=== PATIENT | female | born 1955 | race Hispanic/Latino ===

== ENCOUNTER 2021-02-08 05:52 | Day surgery (SDC) | payer OTHER, MEDICARE ==
[~2021-02-08] VITALS: Ht 149.9 cm; Wt 81.6 kg
[2021-02-08] MEDS ORDERED: 0.9%NACL 1000ML 1,000 ML IV ONE (06:24)
[2021-02-08 06:45] VITALS: BP 147/56
[2021-02-08] MEDS ORDERED: OLME40TA18 PO (07:08)
[2021-02-08] MEDS ORDERED: DULA1.5P SQ (07:08)
[2021-02-08] MEDS ORDERED: CANA300T PO (07:08)
[2021-02-08] MEDS ORDERED: FAMO20TA8 PO (07:08)
[2021-02-08] MEDS ORDERED: SUCR1TAB2 PO (07:08)
[2021-02-08] MEDS ORDERED: METF-527 PO (07:08)
[2021-02-08] MEDS ORDERED: ROSU10TA28 PO (07:08)
[2021-02-08] MEDS ORDERED: MONT-39 PO (07:08)
[2021-02-08] MEDS ORDERED: PARO40TA72 PO (07:08)
[2021-02-08] MEDS ORDERED: OMEP40CA21 PO (07:08)
[2021-02-08] MEDS ORDERED: DICY20TA3 PO (07:08)
[2021-02-08] MEDS ORDERED: ALLO100T PO (07:08)
[2021-02-08] MEDS ORDERED: PROPOFOL 10 MG/ML 20ML VIAL IV ONE (08:19)
[2021-02-08] MEDS ORDERED: EPINEPHRINE PF 1MG AMP ONE (08:39)
[2021-02-08 08:50] VITALS: BP 144/70
[2021-02-08 08:56] VITALS: BP 146/62
[2021-02-08 09:00] VITALS: BP 163/70
[2021-02-08 09:05] VITALS: BP 145/62
[2021-02-08 09:20] VITALS: BP 148/70
== END 2021-02-08 09:20 | disposition home or self-care (01) ==
LOC: ENDO 05:52 → DAH 05:52 → ENDO 09:20
PROVIDERS: ATTEND Internal Medicine Gastroenterology
DX: K31.7 Polyp of stomach and duodenum (principal); Z20.822 Contact with and (suspected) exposure to COVID-19; K29.50 Unspecified chronic gastritis without bleeding; K31.89 Other diseases of stomach and duodenum; K21.9 Gastro-esophageal reflux disease without esophagitis; E11.9 Type 2 diabetes mellitus without complications; E66.01 Morbid (severe) obesity due to excess calories; I10 Essential (primary) hypertension; F41.9 Anxiety disorder, unspecified; F32.9 Major depressive disorder, single episode, unspecified; E78.00 Pure hypercholesterolemia, unspecified; Z79.82 Long term (current) use of aspirin; Z79.4 Long term (current) use of insulin; Z79.899 Other long term (current) drug therapy; Z86.010 Personal history of colon polyps; Z98.890 Other specified postprocedural states; Z98.891 History of uterine scar from previous surgery; Z90.89 Acquired absence of other organs; Z90.49 Acquired absence of other specified parts of digestive tract
CPT/HCPCS: 43237; 43251; 43255; 82948; 87635; 88305; 88342; 93005; A4606; C9803; J0171; J2704; J7030